=== PATIENT | male | born 1980 | race Two or more races ===

== ENCOUNTER → 2018-07-19 | Outpatient (CLI) | payer MEDICAID | END | disposition home or self-care (01) | LOC: RAD 14:33 | DX: N28.1 Cyst of kidney, acquired (principal) | CPT/HCPCS: 76770 ==

== ENCOUNTER 2020-08-13 19:58 | Emergency (ER) | payer MEDICAID ==
[~2020-08-13] VITALS: Ht 175.3 cm; Wt 86.7 kg
[2020-08-13 20:02] VITALS: BP 161/74
[2020-08-13] MEDS ORDERED: DIPH,PERTUSS(ACELL),TET VAC/PF 0.5 ML IM-VACC ONE ×2 (20:25→20:30)
[2020-08-13] MEDS ORDERED: LIDOCAINE-MPF 1%, 5ML INFIL ONE (20:30)
== END 2020-08-13 21:27 | disposition home or self-care (01) ==
LOC: ED 21:26
DX: S61.002A Unspecified open wound of left thumb without damage to nail, initial encounter (principal); F17.200 Nicotine dependence, unspecified, uncomplicated; X58.XXXA Exposure to other specified factors, initial encounter; Y93.89 Activity, other specified; Y92.090 Kitchen in other non-institutional residence as the place of occurrence of the external cause; Y99.8 Other external cause status
CPT/HCPCS: 12001; 90471; 90715; 99283

== ENCOUNTER 2021-02-09 23:16 | Emergency (ER) | payer MEDICAID ==
[~2021-02-09] VITALS: Ht 170.2 cm; Wt 89.0 kg
[2021-02-09 23:18] VITALS: BP 114/71
[2021-02-09] MEDS ORDERED: HYDROcodone/APAP 5/325 TABLET PO PRN (23:30)
--- NOTE | 2021-02-09 23:30 | NUR ---
PT ROLLED RIGHT FOOT TODAY AND HAS 9/10 PAIN SINCE CMS INTACT NO GROSS DEFORMITY
[2021-02-09] MEDS ORDERED: HYDROcodone/APAP 5/325 TABLET ONE (23:33)
--- NOTE | 2021-02-09 23:38 | NUR ---
MEDICATED PER EMAR FOR PAIN AT 05/01-PATIENT THEN TO RADIOLOGY
--- NOTE | 2021-02-10 00:48 | NUR ---
WITH REASSESSMENT PAIN IMPROVED TO 3/10 CMS REMAINS INTACT PROVIDED WITH NUPUR WRAP. AIR SPLINT APPLIED WELL CRUTCHES PATIENT AMBULATING WITH CRUTCHES SAFELY CMS INTACT POST SPLINT APPLICATION
== END 2021-02-10 00:51 | disposition home or self-care (01) ==
LOC: ED 02-10 00:14
DX: S93.492A Sprain of other ligament of left ankle, initial encounter (principal); F17.210 Nicotine dependence, cigarettes, uncomplicated; X58.XXXA Exposure to other specified factors, initial encounter; Y93.89 Activity, other specified; Y92.89 Other specified places as the place of occurrence of the external cause; Y99.8 Other external cause status
CPT/HCPCS: 99284; 99406

== ENCOUNTER 2021-03-18 00:12 | Emergency (ER) | payer MEDICAID ==
[~2021-03-18] VITALS: Ht 167.6 cm; Wt 86.0 kg
--- NOTE | 2021-03-18 00:45 | NUR ---
IV STARTED, PT TOLERATED WELL. US AT BEDSIDE FOR STUDY.
[2021-03-18 00:46] LABS: BASOPHILS % (AUTO) 1 % (0-1); EOSINOPHILS % (AUTO) 1 % (1-7); LYMPHOCYTES % (AUTO) 12 % (22-44); MEAN CORPUSCULAR HEMOGLOBIN 28.2 pg (27.5-34.5); MEAN PLATELET VOLUME 6.8 fL (7.4-10.4); MONOCYTES % (AUTO) 6 % (2-9); NEUTROPHILS % (AUTO) 81 % (42-75); PLATELET COUNT 289 x10^3/uL (130-400); RED CELL DISTRIBUTION WIDTH 13.7 % (9.4-14.8)
[2021-03-18 00:47] LABS: MD NO
[2021-03-18] MEDS ORDERED: ONDANSETRON 2MG/ML, 2ML ONE (00:54)
[2021-03-18] MEDS ORDERED: MORPHINE SULFATE 4 MG/ML, 1ML ONE (00:54)
[2021-03-18 00:58] LABS: ALANINE AMINOTRANSFERASE 45 U/L (12-78); ALBUMIN 3.7 g/dL (3.4-5.0); ANION GAP 6 mmol/L (5-15); CALCIUM 8.1 mg/dL (8.5-10.1); CHLORIDE 110 mmol/L (98-107); CREATININE 0.88 mg/dL (0.7-1.3)
[2021-03-18 01:00] LABS: ALKALINE PHOSPHATASE 108 U/L (45-117); BILIRUBIN,TOTAL 0.4 mg/dL (0.2-1.0); TOTAL PROTEIN 7.2 g/dL (6.4-8.2)
[2021-03-18] MEDS ORDERED: ONDANSETRON 2MG/ML, 2ML IVPush ONE (01:00)
[2021-03-18] MEDS ORDERED: MORPHINE SULFATE 4 MG/ML, 1ML IVPush PRN (01:00)
--- NOTE | 2021-03-18 01:06 | NUR ---
PT MEDICATED FOR PAIN AND NAUSEA PER EMAR. PT TOLERATED WELL. AT BEDSIDE.
[2021-03-18 01:22] LABS: MICROSCOPIC INDICATED
--- NOTE | 2021-03-18 02:19 | NUR ---
Report received from [facility]. This RN to assume care.
--- NOTE | 2021-03-18 03:31 | NUR ---
Assisted patient to bathroom. Patient ambulatory with a steady gait. Awaiting CT.
[2021-03-18 04:21] VITALS: BP 90/51
--- NOTE | 2021-03-18 05:03 | NUR ---
Discharge instructions given. All questions and concerns addressed. Patient ambulatory with a steady gait. Belongings with patient.
== END 2021-03-18 05:07 | disposition home or self-care (01) ==
LOC: ED 00:50
DX: K80.20 Calculus of gallbladder without cholecystitis without obstruction (principal); R31.29 Other microscopic hematuria; F17.210 Nicotine dependence, cigarettes, uncomplicated; Z90.89 Acquired absence of other organs
CPT/HCPCS: 36415; 74176; 76700; 80053; 81001; 83690; 85025; 96374; 96375; 99285; 99406; J2270; J2405